=== PATIENT | male | born 1975 | race Caucasian/White ===

== ENCOUNTER → 2017-01-23 | Outpatient (CLI) | payer OTHER | END | disposition disaster alternative care site (69) | LOC: GRAD 07:40 | PROC: BP29YZZ Computerized Tomography (CT Scan) of Left Shoulder using Other Contrast (ICD-10-PCS; principal; 2017-01-23) | DX: Z47.89 Encounter for other orthopedic aftercare (principal); M75.112 Incomplete rotator cuff tear or rupture of left shoulder, not specified as traumatic ==